=== PATIENT | female | born 1975 ===

== ENCOUNTER 2018-06-03 12:59 | Emergency (ER) | payer BC ==
[2018-06-03 15:22] VITALS: BP 97/58
--- NOTE | 2018-06-03 15:55 | UC ---
Ear Complaint HPI - HPI Summary HPI Summary: 43-year-old female presents with 2 week history of intermittent ear pain. States the pain has alternated between both ears. Currently has pain in the right ear. Denies fever, chills, ear drainage, nasal congestion, nasal drainage , sore throat, dizziness, vertigo, tinnitus, or cough. - History of Current Complaint Chief Complaint: UCEar Stated Complaint: BILATERAL EAR CONCERN Time Seen by Provider: 06/03/18 15:35 Hx Obtained From: Patient Hx Last Menstrual Period: 06/01/14 ?: No Onset/Duration: Gradual Onset, Lasting Weeks - 2 Pain Intensity: 4 Aggravating Factors: Nothing Alleviating Factors: Nothing - Allergies/Home Medications Allergies/Adverse Reactions: Allergies Allergy/AdvReac Type Severity Reaction Status Date / Time hydroxychloroquine Allergy Itching Verified 06/03/18 15:17 [From Plaquenil] Home Medications: Home Medications Estradiol 0.025 MG PATCH (NF) 1 patch TOPICAL DAILY 06/03/18 [History Confirmed 06/03/18] Gabapentin 300 mg PO DAILY 06/03/18 [History Confirmed 06/03/18] Ibuprofen 400 mg PO ONCE 06/03/18 [History Confirmed 06/03/18] Levothyroxine Sodium 125 mcg PO DAILY 06/03/18 [History Confirmed 06/03/18] PMH/Surg Hx/FS Hx/Imm Hx - Additional Past Medical History Additional PMH: Fibromyalgia, rheumatoid arthritis Endocrine History: Thyroid Disease - Surgical History Surgical History: Yes Surgery Procedure, Year, and Place: HYSTERECTOMY. BREAST REDUCTION. Tympanostomy tubes - Family History Family History: Noncontributory - Social History Occupation: Employed Full-time Lives: With Family Alcohol Use: None Substance Use Type: None Smoking Status (MU): Never Smoked Tobacco Have You Smoked in the Last Year: No - Immunization History Most Recent Tetanus Shot: unknown Review of Systems Constitutional: Negative Skin: Negative Eyes: Negative ENT: Ear Ache Respiratory: Negative Cardiovascular: Negative Is Patient Immunocompromised?: No All Other Systems Reviewed And Are Negative: Yes Physical Exam Triage Information Reviewed: Yes Appearance: Well-Appearing, No Pain Distress, Well-Nourished Vital Signs: Initial Vital Signs Temp 98.0 F 06/03/18 15:15 Pulse 76 06/03/18 15:15 Resp 17 06/03/18 15:15 BP 97/58 06/03/18 15:15 Pulse Ox 100 06/03/18 15:15 Vital Signs Reviewed: Yes Eyes: Positive: Conjunctiva Clear. Negative: Discharge ENT: Positive: Hearing grossly normal, Pharynx normal, TMs normal - Bilateral scarring, Uvula midline. Negative: Nasal congestion, Nasal drainage, TM bulging , TM dull, TM red, Sinus tenderness Neck: Positive: Supple, Nontender, No Lymphadenopathy Respiratory: Positive: Lungs clear, Normal breath sounds, No respiratory distress Cardiovascular: Positive: RRR, No Murmur Neurological: Positive: Alert Skin Exam: Normal Ear Complaint Course/Dx - Course Course Of Treatment: 49 year old female with 2 weeks of intermittent bilateral ear pain. Exam unremarkable. Suspect symptoms may be from eustachian tube dysfunction. Will treat with course of fluticasone nasal spray. She is to follow up with PCP in 2 weeks if no improvement in symptoms. Warning symptoms reviewed. Verbalizes understanding and agrees with POC. - Differential Dx/Diagnosis Differential Diagnosis/HQI/PQRI: Cerumen Impaction, Otitis Externa, Otitis Media Provider Diagnoses: bilateral eustachian tube dysfunction Discharge - Sign-Out/Discharge Documenting (check all that apply): Patient Departure All imaging exams completed and their final reports reviewed: No Studies - Discharge Plan Condition: Stable Disposition: HOME Prescriptions: Fluticasone NASAL SPRAY 50MCG* [Flonase NASAL SPRAY 50MCG*] 2 spray BOTH NARES DAILY #1 btl Patient Education Materials: Earache (ED) Referrals: Zakia Cook MD [Primary Care Provider] - 2 Weeks (If symptoms persist.) Additional Instructions: There is no evidence of ear infection on your exam today. I suspect that her symptoms may be caused by a condition called eustachian tube dysfunction. Start fluticasone nasal spray 2 sprays each nostril once daily. May take an [id number] pain medication such as acetaminophen (Tylenol) or ibuprofen (Advil, Motrin) according to directions as needed for any pain. Follow-up with your primary care provider in 2 weeks if her symptoms persist. Seek immediate medical attention if you develop a fever greater than 100.5 F, have any drainage or blood coming from you're ear, have dizziness, or any worsening of symptoms. - Billing Disposition and Condition Condition: STABLE Disposition: Home - Attestation Statements Provider Attestation: Per institutional requirements, I have reviewed the chart, however, I was not consulted specifically or made aware of this patient by the midlevel provider. I did not personally evaluate, interact with , or disposition this patient.
== END 2018-06-03 16:01 | disposition home or self-care (01) ==
LOC: UCCORT 12:59
DX: H69.93 Unspecified Eustachian tube disorder, bilateral (principal); M06.9 Rheumatoid arthritis, unspecified; E07.9 Disorder of thyroid, unspecified; M79.7 Fibromyalgia; Z88.8 Allergy status to other drugs, medicaments and biological substances
CPT/HCPCS: 99212; G0463